=== PATIENT | male | born 1990 | race Caucasian/White ===

== ENCOUNTER 2019-02-01 09:42 | Emergency (ER) | payer BC, MEDICARE, OTHER ==
[~2019-02-01] VITALS: Ht 170.2 cm; Wt 63.0 kg
[~2019-02-01 09:42] MED LIST: ALPR2TAB2 PO; AMPH10CA3 PO
[2019-02-01 10:31] LABS: *BILIRUBIN,URIN NEGATIVE (NEGATIVE); *CLARITY,URINE CLEAR (CLEAR); *COLOR,URINE YELLOW (YELLOW); *KETONES,URINE NEGATIVE (NEGATIVE); *UROBILINOGEN,URINE 0.2 E.U./dl (NORMAL); LEUKOCYTE ESTERASE ,URINE NEGATIVE (NEGATIVE); NITRITE, URINE NEGATIVE (NEGATIVE); PH,URINE 6.5 (5.0-8.0); UGLUCOSE NEGATIVE (NEGATIVE)
[2019-02-01 10:46] LABS: *BLOOD, URINE NEGATIVE (NEGATIVE)
--- NOTE | 2019-02-01 10:46 | NUR ---
Patient is resting comfortably on [place] w[place]rop, pending results & disposition.
--- NOTE | 2019-02-01 10:54 | NUR ---
Patient discharged to home in stable conditon. Written and verbal after care instructions given to patient. Patient verbalizes understanding of instructions. Patient left ER with brisk steady gait.
== END 2019-02-01 10:55 | disposition home or self-care (01) ==
LOC: ER 09:44
DX: N50.812 Left testicular pain (principal); F31.9 Bipolar disorder, unspecified; Z79.899 Other long term (current) drug therapy
CPT/HCPCS: 76870